=== PATIENT | female | born 1985 ===

== ENCOUNTER 2017-05-29 07:16 | Inpatient (IN) | payer OTHER ==
[~2017-05-29] VITALS: Ht 162.6 cm; Wt 76.7 kg
[2017-05-29] MEDS ORDERED: SYNTHROID50 MCG PO (08:39)
[2017-06-01] MEDS ORDERED: SYNTHROID50 MCG PO (12:50)
== END 2017-06-01 13:12 | disposition home or self-care (01) | DRG 775 ==
LOC: LDR 07:16 → OB/GYN 07:16
PROC: 4A1HXCZ Monitoring of Products of Conception, Cardiac Rate, External Approach (ICD-10-PCS; 2017-05-29)
PROC: 0UQGXZZ Repair Vagina, External Approach (ICD-10-PCS; principal; 2017-05-30)
PROC: 10E0XZZ Delivery of Products of Conception, External Approach (ICD-10-PCS; 2017-05-30)
PROC: 3E033VJ Introduction of Other Hormone into Peripheral Vein, Percutaneous Approach (ICD-10-PCS; 2017-05-30)
PROC: 0W8NXZZ Division of Female Perineum, External Approach (ICD-10-PCS; 2017-05-30)
DX: O71.4 Obstetric high vaginal laceration alone (principal); O69.81X0 Labor and delivery complicated by cord around neck, without compression, not applicable or unspecified; O48.0 Post-term pregnancy; Z3A.40 40 weeks gestation of pregnancy; Z37.0 Single live birth